=== PATIENT | female | born 1960 | race Two or more races ===

== ENCOUNTER 2017-12-12 17:07 | Emergency (ER) | payer MEDICAID ==
[~2017-12-12] VITALS: Ht 165.1 cm; Wt 74.4 kg
[~2017-12-12 17:07] MED LIST: NORPTMEDS CO
[2017-12-12 17:09] VITALS: BP 120/77
[2017-12-12] MEDS ORDERED: HYDROcodone-ACET 10/325MG TAB PO ONE (20:00)
[2017-12-12] MEDS ORDERED: IBUPROFEN 800 MG TAB PO ONE (20:00)
== END 2017-12-12 20:38 | disposition home or self-care (01) ==
LOC: ER 17:07
DX: S09.8XXA Other specified injuries of head, initial encounter (principal); F17.210 Nicotine dependence, cigarettes, uncomplicated; Z86.19 Personal history of other infectious and parasitic diseases; X58.XXXA Exposure to other specified factors, initial encounter; Y93.89 Activity, other specified; Y92.89 Other specified places as the place of occurrence of the external cause; Y99.8 Other external cause status
CPT/HCPCS: 70450; 70486